=== PATIENT | female | born 2005 | race Caucasian/White ===

== ENCOUNTER 2023-01-04 16:14 | Emergency (ER) | payer OTHER, MEDICAID ==
[~2023-01-04] VITALS: Ht 157.5 cm; Wt 45.0 kg
[2023-01-04 16:30] VITALS: BP 116/73
[2023-01-04] MEDS ORDERED: predniSONE 20 mg tablet PO STA (17:01)
[2023-01-04] MEDS ORDERED: ibuprofen tablet 400 MG TABLET PO ONE (17:05)
[2023-01-04] MEDS ORDERED: amox tr/potassium clavulanate 875/125mg TAB PO ONE (17:05)
[2023-01-04] MEDS ORDERED: PRED50TA PO (17:10)
[2023-01-04] MEDS ORDERED: AMOX-117 PO (17:10)
[2023-01-04] MEDS ORDERED: IBUP-1985 PO (17:10)
== END 2023-01-04 17:45 | disposition home or self-care (01) ==
LOC: ER 16:16
DX: J02.9 Acute pharyngitis, unspecified (principal)
CPT/HCPCS: 99283; J7512